=== PATIENT | male | born 1955 | race Caucasian/White ===

== ENCOUNTER 2020-09-26 04:33 | Inpatient (IN) ==
[2020-09-26] MEDS ORDERED: 0.9 % SODIUM CHLORIDE 1,000 ML IV ONE (04:41)
[2020-09-26] MEDS ORDERED: VANCOMYCIN 1,000 MG in 0.9 % SODIUM CHLORIDE 250 ML IV ONE (04:41)
[2020-09-26] MEDS ORDERED: PIPERACILLIN SODIUM/TAZOBACTAM 3.375 GM in DEXTROSE 5% IN WATER 50 ML IV SCH (04:45)
--- NOTE | 2020-09-26 04:57 | Emergency Department Note ---
HPI General Chief complaint: Weakness Stated complaint: weakness and fever Time Seen by Provider: 09/26/20 04:35 Mode of arrival: EMS Limitations: altered mental status History of Present Illness HPI Narrative: Narrative: The patient is a 65-year-old male presents by ambulance with altered mental status, weakness and fever. Looking through his past medical history he has a history of hepatic encephalopathy, recurrent urinary tract infections pneumonia and alcohol abuse. Related Data Previous Rx's Medication Instructions Recorded lactulose 20 gram/30 mL oral 30 ml PO TID #2700 ml 09/08/20 solution pantoprazole 20 mg tablet,delayed 40 mg PO QDAY #180 tab 09/09/20 release spironolactone 25 mg tablet See Rx Instructions .ROUTE 09/09/20 .COMPLEX #180 tab tamsulosin 0.4 mg capsule 0.4 mg PO BID #180 cap 09/09/20 Allergies Allergy/AdvReac Type Severity Reaction Status Date / Time No Known Drug Allergies Allergy Verified 09/26/20 04:42 Review of Systems ROS ROS Narrative: Narrative: Limitations: ROS unobtainable due to patients medical condition [facility] Narrative Patient History Narrative: Narrative: Medical/Surgical/Family History All Active Problems (Updated 09/26/20 @ 06:56 by Tj Rodarte DO) Fever (Acute) AMS (altered mental status) (Acute) Thrombocytopenia (Acute) Acute UTI (Acute) Encephalopathy, hepatic (Acute) Hypomagnesemia (Acute) Medicare annual wellness visit, initial (Acute) BPH (benign prostatic hyperplasia) (Chronic) Recurrent UTI (Chronic) Hyperammonemia (Chronic) Edema (Chronic) Tobacco abuse (Chronic) Abnormal liver function tests (Chronic) Encounter for Health Maintenance Examination in Adult (Chronic) Gall bladder polyp (Chronic) Stiff back (Chronic) Weakness of right lower extremity (Chronic) Pain, dental (Chronic) Stiffness of hip joint (Chronic) Thrombocytopenia (Chronic) Dysphagia (Chronic) Nocturnal leg movements (Chronic) Serrated adenoma of colon (Chronic) Restless legs (Chronic 01/13/14) Portal hypertension (Chronic) Lipoma of skin and subcutaneous tissue (Chronic) Hypertension, essential (Chronic 09/25/13) Hernia, ventral (Chronic) Esophageal varices with bleeding (Chronic) ED (erectile dysfunction) (Chronic 11/12/13) Coagulopathy (Chronic 11/12/13) Alcoholic cirrhosis of liver (Chronic) Anemia (Chronic 10/30/13) Alcohol abuse, continuous (Chronic) Acid reflux (Chronic) Medical History Abnormal liver function tests Acid reflux 2004 Alcohol abuse, continuous Alcoholic cirrhosis of liver Anemia (10/30/13) Anemia of chr disease, vs secondary to blood loss check iron stores, check vit levels Ascites (10/30/13) Cellulitis and abscess of neck 12/23/2014 - Dr. Demetrius Ribera Coagulopathy (11/12/13) Colon polyp (03/19/14) HP Constipation (01/13/14) Dysphagia ED (erectile dysfunction) (11/12/13) Edema (10/30/13) Edema Encounter for Health Maintenance Examination in Adult 02/26/17 Esophageal varices with bleeding Gall bladder polyp Gastritis 03-19-2014 Dr. Wu Hernia, ventral infraumbilical, Patient wants surgical treatment. Explained to the patient that he is not a candidate for surgery as he has cirrhosis, and any abdomninal surgery can be dangerous due high potential for heavy blood loss. [facility] discharge follow-up Hypertension, essential (09/25/13) Jaundice not of (09/25/13) Lipoma of skin and subcutaneous tissue 03-19-2014 Dr. Wu- submucosal Medicare annual wellness visit, initial Nocturnal leg movements Pain, dental Portal hypertension Radiculopathy Recurrent UTI Restless legs (01/13/14) Serrated adenoma of colon Skin sensation disturbance (01/13/14) Breast Stiff back Stiffness of hip joint Thrombocytopenia stable, etiology likely cirrhosis and splenomegaly, given stability for nearly a decade patient has chosen to monitor. Seen by Dr William Oncology. Tobacco abuse Weakness of right lower extremity Right leg weakness, loss of senstation after rest. Knee reflex absent on the right side, Left side ++ . Sensory system intact in both lower extremities.. plantar down going both sides. Surgical History H/O colonoscopy (03/19/14) (03/19/14-Dr. Wu) Submucosal lipoma, serrated adenoma, HP H/O esophagogastroduodenoscopy (03/19/14) 03/19/14-Gastritis, minimal varices, scarring consistent with previous banding-Dr Wu 10/30/2013- History of back surgery Family History Father Myocardial Infarction High cholesterol Social History Smoking Status: Current every day smoker Alcohol Intake Frequency: does not drink Substance Use: does not use Exam Narrative Narrative: Narrative: General Limitations: altered mental status General appearance: Present sleepy and other (appears ill ) Head Head: Present atraumatic and normocephalic Eye Eye: Present normal appearance, PERRL and EOMI ENT ENT: Present normal exam, normal oropharynx and mucous membranes dry Neck Neck: Present normal inspection, full ROM and trachea midline Chest Chest: Present normal inspection and symmetric chest wall rise Respiratory Respiratory: Present normal lung sounds bilaterally Cardiovascular Cardiovascular: Present regular rate and normal rhythm Adbominal Abdominal: Present soft, normal bowel sounds and organomegaly; Absent tenderness, guarding, rebound, ascites and pulsatile mass Extremities Extremities: Present pretibial edema and other (Erythema and warmth to the right ankle with streaking noted to the groin) Back Back: Present normal inspection and full ROM; Absent tenderness Neurological Neurological: Present alert, oriented X3, CN II-XII intact, normal gait, motor sensory deficit and reflexes normal Psychiatric Psychiatric: Present normal affect Skin Skin: Present warm (WNL), erythema and other (Erythema and warmth to the right ankle with streaking noted to the groin) Course Course Course Narrative: EK:50 rate 77, ME interval 231, QRS 106, QTc 431, sinus rhythm, prolonged ME interval, P waves are upright in leads I to III, inverted aVR, no ME depression or elevation in lead II or aVR respectively, normal axis, no STEMI, good R wave progression, no acute ST segment elevation or depression, no shortened ME interval, no biphasic T waves, nonspecific EKG. Vital Signs Vital signs: Vital Signs Temperature 103.1 F H 09/26/20 04:37 Pulse Rate 83 09/26/20 04:37 Respiratory Rate 20 09/26/20 04:37 Blood Pressure 134/64 09/26/20 04:37 Pulse Oximetry (%) 97 09/26/20 04:37 Temperature 99.8 F H 09/26/20 06:31 Pulse Rate 64 09/26/20 06:31 Respiratory Rate 19 09/26/20 06:31 Blood Pressure 106/57 09/26/20 06:31 Pulse Oximetry (%) 98 09/26/20 06:31 MDM MDM Narrative Medical decision making narrative: Narrative: ddx: Most likely a cellulitis given the fever and evidence of erythema and warmth and streaking of the right lower extremity. Covid, influenza, cystitis, SBP, sepsis with urinary tract infection, sepsis, hepatic encephalopathy 06:41 patient signed out at shift change to dr. solomon cole. Patient will require admission for IV abx for AMS, UTI, Cellulitis, treatment of his hepatic encephalopathy. Lab Data Result diagrams: 09/26/20 05:11 09/26/20 05:11 Labs: Lab Results 09/26/20 09/26/20 09/26/20 Range/Units 05:03 05:03 05:11 WBC 10.5 (4.5-11.0) K/mcL RBC 3.98 L (4.50-5.90) M/mcL Hgb 12.4 L (13.5-16.5) g/dL Hct 36.1 L (41.0-55.0) % MCV 90.7 (80.0-100.0) fL MCH 31.2 (26.0-34.0) pg MCHC 34.3 (31.0-36.0) g/dL RDW 16.9 H (11.5-14.5) % Plt Count 43 L* (140-440) K/mcL MPV 12.8 H (7.4-10.4) fL PT (11.9-14.5) sec INR (0.9-1.1) ABG Methemoglobin (0.4-1.5) % VBG pH (7.32-7.42) U VBG pCO2 (41.0-51.0) mmHg VBG pO2 (25.0-40.0) mmHg VBG HCO3 (24.0-28.0) mmol/L VBG Total CO2 (25.0-29.0) mmol/L VBG O2 Saturation (40.0-70.0) % VBG Base Excess (-2-3) VBG Lactic Acid (0.5-2.0) mmol/L Carboxyhemoglobin (0.0-1.5) % THgb Total Hemoglobin (13.5-16.5) gm/Dl Sodium (133-145) mmol/L Potassium (3.3-5.1) mmol/L Chloride (96-108) mmol/L Carbon Dioxide (22-30) mmol/L Anion Gap (8.0-16.0) BUN (8-23) mg/dL Creatinine (0.7-1.2) mg/dL GFR Calculation Glucose (70-105) mg/dL Calcium (8.6-10.4) mg/dL Phosphorus (2.5-4.5) mg/dL Magnesium (1.6-2.5) mg/dL Total Bilirubin (0.1-1.0) mg/dL Direct Bilirubin (<0.3) mg/dL AST (<40) U/L ALT (<40) U/L Alkaline Phosphatase (39-117) U/L Ammonia (16-60) umol/L Troponin T (<0.03) ng/mL NT-Pro-B Natriuret Pep (<125.0) pg/mL Total Protein (5.9-8.4) gm/dL Albumin (3.2-5.2) gm/dL Globulin (2.2-3.7) gm/dL Lipase (7-60) U/L Procalcitonin (<0.10) ng/mL Urine Color Yellow Urine Appearance Cloudy A (Clear) Urine pH 7.0 (5.0-9.0) Ur Specific [place] 1.010 (1.000-1.035) Urine Protein 30 A (Negative) mg/dL Urine Glucose (UA) Negative (Negative) mg/dL Urine Ketones Negative (Negative) mg/dL Urine Occult Blood >=1.0 A (Negative) mg/dL Urine Nitrate Negative (Negative) Urine Bilirubin Negative (Negative) mg/dL Urine Urobilinogen Negative mg/dL Ur Leukocyte Esterase 500 A (Negative) /ug Urine RBC 74 H (0-3) /hpf Urine WBC > 182 H (0-4) /hpf Ur Squamous Epith Cells 0 (0-4) /hpf Urine Bacteria Few A (0) /hpf Ur Culture Indicated? yes Salicylates mg/dL Urine Opiates Screen None detected Ur Opiates Confirm TNP Ur Oxycodone Screen None detected Urine Methadone Screen None detected Ur Methadone Confirm TNP Acetaminophen ug/mL Ur Barbiturates Screen None detected Ur Barbiturate Confirm TNP Ur Phencyclidine Scrn None detected Urine PCP Confirm TNP Ur Amphetamines Screen None detected U Amphetamines Confirm TNP U Benzodiazepines Scrn None detected U Benzodiazepine Confm TNP Urine Cocaine Screen None detected Urine Cocaine Confirm TNP U Cannabinoids Confirm TNP U Marijuana (THC) Screen None detected Ethyl Alcohol (<0.010) gm/dL 09/26/20 09/26/20 09/26/20 Range/Units 05:11 05:11 05:11 WBC (4.5-11.0) K/mcL RBC (4.50-5.90) M/mcL Hgb (13.5-16.5) g/dL Hct (41.0-55.0) % MCV (80.0-100.0) fL MCH (26.0-34.0) pg MCHC (31.0-36.0) g/dL RDW (11.5-14.5) % Plt Count (140-440) K/mcL MPV (7.4-10.4) fL PT 19.4 H (11.9-14.5) sec INR 1.6 H (0.9-1.1) ABG Methemoglobin (0.4-1.5) % VBG pH (7.32-7.42) U VBG pCO2 (41.0-51.0) mmHg VBG pO2 (25.0-40.0) mmHg VBG HCO3 (24.0-28.0) mmol/L VBG Total CO2 (25.0-29.0) mmol/L VBG O2 Saturation (40.0-70.0) % VBG Base Excess (-2-3) VBG Lactic Acid (0.5-2.0) mmol/L Carboxyhemoglobin (0.0-1.5) % THgb Total Hemoglobin (13.5-16.5) gm/Dl Sodium 129 L (133-145) mmol/L Potassium 3.5 (3.3-5.1) mmol/L Chloride 101 (96-108) mmol/L Carbon Dioxide 17 L (22-30) mmol/L Anion Gap 11.0 (8.0-16.0) BUN 11 (8-23) mg/dL Creatinine 0.9 (0.7-1.2) mg/dL GFR Calculation 89 Glucose 104 (70-105) mg/dL Calcium 7.9 L (8.6-10.4) mg/dL Phosphorus 1.7 L (2.5-4.5) mg/dL Magnesium 1.5 L (1.6-2.5) mg/dL Total Bilirubin 2.5 H (0.1-1.0) mg/dL Direct Bilirubin 0.7 H (<0.3) mg/dL AST 49 H (<40) U/L ALT 24 (<40) U/L Alkaline Phosphatase 166 H (39-117) U/L Ammonia (16-60) umol/L Troponin T < 0.01 (<0.03) ng/mL NT-Pro-B Natriuret Pep 364.6 H (<125.0) pg/mL Total Protein 6.4 (5.9-8.4) gm/dL Albumin 2.7 L (3.2-5.2) gm/dL Globulin 3.7 (2.2-3.7) gm/dL Lipase 44 (7-60) U/L Procalcitonin (<0.10) ng/mL Urine Color Urine Appearance (Clear) Urine pH (5.0-9.0) Ur Specific Ed[place] (1.000-1.035) Urine Protein (Negative) mg/dL Urine Glucose (UA) (Negative) mg/dL Urine Ketones (Negative) mg/dL Urine Occult Blood (Negative) mg/dL Urine Nitrate (Negative) Urine Bilirubin (Negative) mg/dL Urine Urobilinogen mg/dL Ur Leukocyte Esterase (Negative) /ug Urine RBC (0-3) /hpf Urine WBC (0-4) /hpf Ur Squamous Epith Cells (0-4) /hpf Urine Bacteria (0) /hpf Ur Culture Indicated? Salicylates mg/dL Urine Opiates Screen Ur Opiates Confirm Ur Oxycodone Screen Urine Methadone Screen Ur Methadone Confirm Acetaminophen ug/mL Ur Barbiturates Screen Ur Barbiturate Confirm Ur Phencyclidine Scrn Urine PCP Confirm Ur Amphetamines Screen U Amphetamines Confirm U Benzodiazepines Scrn U Benzodiazepine Confm Urine Cocaine Screen Urine Cocaine Confirm U Cannabinoids Confirm U Marijuana (THC) Screen Ethyl Alcohol (<0.010) gm/dL 09/26/20 09/26/20 09/26/20 Range/Units 05:11 05:11 05:11 WBC (4.5-11.0) K/mcL RBC (4.50-5.90) M/mcL Hgb (13.5-16.5) g/dL Hct (41.0-55.0) % MCV (80.0-100.0) fL MCH (26.0-34.0) pg MCHC (31.0-36.0) g/dL RDW (11.5-14.5) % Plt Count (140-440) K/mcL MPV (7.4-10.4) fL PT (11.9-14.5) sec INR (0.9-1.1) ABG Methemoglobin (0.4-1.5) % VBG pH (7.32-7.42) U VBG pCO2 (41.0-51.0) mmHg VBG pO2 (25.0-40.0) mmHg VBG HCO3 (24.0-28.0) mmol/L VBG Total CO2 (25.0-29.0) mmol/L VBG O2 Saturation (40.0-70.0) % VBG Base Excess (-2-3) VBG Lactic Acid 2.9 H (0.5-2.0) mmol/L Carboxyhemoglobin (0.0-1.5) % THgb Total Hemoglobin (13.5-16.5) gm/Dl Sodium (133-145) mmol/L Potassium (3.3-5.1) mmol/L Chloride (96-108) mmol/L Carbon Dioxide (22-30) mmol/L Anion Gap (8.0-16.0) BUN (8-23) mg/dL Creatinine (0.7-1.2) mg/dL GFR Calculation Glucose (70-105) mg/dL Calcium (8.6-10.4) mg/dL Phosphorus (2.5-4.5) mg/dL Magnesium (1.6-2.5) mg/dL Total Bilirubin (0.1-1.0) mg/dL Direct Bilirubin (<0.3) mg/dL AST (<40) U/L ALT (<40) U/L Alkaline Phosphatase (39-117) U/L Ammonia (16-60) umol/L Troponin T (<0.03) ng/mL NT-Pro-B Natriuret Pep (<125.0) pg/mL Total Protein (5.9-8.4) gm/dL Albumin (3.2-5.2) gm/dL Globulin (2.2-3.7) gm/dL Lipase (7-60) U/L Procalcitonin 0.14 H (<0.10) ng/mL Urine Color Urine Appearance (Clear) Urine pH (5.0-9.0) Ur Specific [place] (1.000-1.035) Urine Protein (Negative) mg/dL Urine Glucose (UA) (Negative) mg/dL Urine Ketones (Negative) mg/dL Urine Occult Blood (Negative) mg/dL Urine Nitrate (Negative) Urine Bilirubin (Negative) mg/dL Urine Urobilinogen mg/dL Ur Leukocyte Esterase (Negative) /ug Urine RBC (0-3) /hpf Urine WBC (0-4) /hpf Ur Squamous Epith Cells (0-4) /hpf Urine Bacteria (0) /hpf Ur Culture Indicated? Salicylates < 0.3 mg/dL Urine Opiates Screen Ur Opiates Confirm Ur Oxycodone Screen Urine Methadone Screen Ur Methadone Confirm Acetaminophen < 5.0 ug/mL Ur Barbiturates Screen Ur Barbiturate Confirm Ur Phencyclidine Scrn Urine PCP Confirm Ur Amphetamines Screen U Amphetamines Confirm U Benzodiazepines Scrn U Benzodiazepine Confm Urine Cocaine Screen Urine Cocaine Confirm U Cannabinoids Confirm U Marijuana (THC) Screen Ethyl Alcohol (<0.010) gm/dL 09/26/20 09/26/20 09/26/20 Range/Units 05:11 05:35 05:35 WBC (4.5-11.0) K/mcL RBC (4.50-5.90) M/mcL Hgb (13.5-16.5) g/dL Hct (41.0-55.0) % MCV (80.0-100.0) fL MCH (26.0-34.0) pg MCHC (31.0-36.0) g/dL RDW (11.5-14.5) % Plt Count (140-440) K/mcL MPV (7.4-10.4) fL PT (11.9-14.5) sec INR (0.9-1.1) ABG Methemoglobin 0 L (0.4-1.5) % VBG pH 7.45 H (7.32-7.42) U VBG pCO2 28.3 L (41.0-51.0) mmHg VBG pO2 68.9 H (25.0-40.0) mmHg VBG HCO3 19.3 L (24.0-28.0) mmol/L VBG Total CO2 20.1 L (25.0-29.0) mmol/L VBG O2 Saturation 89.0 H (40.0-70.0) % VBG Base Excess -4 L (-2-3) VBG Lactic Acid (0.5-2.0) mmol/L Carboxyhemoglobin 5.0 H (0.0-1.5) % THgb Total Hemoglobin 11.0 L (13.5-16.5) gm/Dl Sodium (133-145) mmol/L Potassium (3.3-5.1) mmol/L Chloride (96-108) mmol/L Carbon Dioxide (22-30) mmol/L Anion Gap (8.0-16.0) BUN (8-23) mg/dL Creatinine (0.7-1.2) mg/dL GFR Calculation Glucose (70-105) mg/dL Calcium (8.6-10.4) mg/dL Phosphorus (2.5-4.5) mg/dL Magnesium (1.6-2.5) mg/dL Total Bilirubin (0.1-1.0) mg/dL Direct Bilirubin (<0.3) mg/dL AST (<40) U/L ALT (<40) U/L Alkaline Phosphatase (39-117) U/L Ammonia 80 H (16-60) umol/L Troponin T (<0.03) ng/mL NT-Pro-B Natriuret Pep (<125.0) pg/mL Total Protein (5.9-8.4) gm/dL Albumin (3.2-5.2) gm/dL Globulin (2.2-3.7) gm/dL Lipase (7-60) U/L Procalcitonin (<0.10) ng/mL Urine Color Urine Appearance (Clear) Urine pH (5.0-9.0) Ur Specific [place] (1.000-1.035) Urine Protein (Negative) mg/dL Urine Glucose (UA) (Negative) mg/dL Urine Ketones (Negative) mg/dL Urine Occult Blood (Negative) mg/dL Urine Nitrate (Negative) Urine Bilirubin (Negative) mg/dL Urine Urobilinogen mg/dL Ur Leukocyte Esterase (Negative) /ug Urine RBC (0-3) /hpf Urine WBC (0-4) /hpf Ur Squamous Epith Cells (0-4) /hpf Urine Bacteria (0) /hpf Ur Culture Indicated? Salicylates mg/dL Urine Opiates Screen Ur Opiates Confirm Ur Oxycodone Screen Urine Methadone Screen Ur Methadone Confirm Acetaminophen ug/mL Ur Barbiturates Screen Ur Barbiturate Confirm Ur Phencyclidine Scrn Urine PCP Confirm Ur Amphetamines Screen U Amphetamines Confirm U Benzodiazepines Scrn U Benzodiazepine Confm Urine Cocaine Screen Urine Cocaine Confirm U Cannabinoids Confirm U Marijuana (THC) Screen Ethyl Alcohol < 0.010 (<0.010) gm/dL ED POC Tests ED POC Tests: RONNIE - SARS Antigen Negative Discharge Plan Patient/Caregiver Discharge Instructions Pt seen by BUILDING CARPENTER/PA only: No Clinical Impression: Thrombocytopenia, Acute UTI, Encephalopathy, hepatic, Hypomagnesemia Fever Qualifiers: Fever type: unspecified Qualified Code(s): R50.9 - Fever, unspecified AMS (altered mental status) Qualifiers: Altered mental status type: unspecified Qualified Code(s): R41.82 - Altered mental status, unspecified Patient Disposition: Still a Patient Condition: Serious Follow up with: Janelle Dorantes DO [Primary Care Provider] - Prescriptions: No Action lactulose 20 gram/30 mL solution 30 ml PO TID Qty: 2700 RF: 0 spironolactone 25 mg tablet See Rx Instructions .ROUTE .COMPLEX Qty: 180 RF: 1 tamsulosin [Flomax] 0.4 mg capsule 0.4 mg PO BID Qty: 180 RF: 1 pantoprazole [Protonix] 20 mg tablet,delayed release (DR/EC) 40 mg PO QDAY Qty: 180 RF: 0
[2020-09-26] MEDS ORDERED: IBUPROFEN TABLET (PP) 1 TABLET TABLET PO ONE (05:01)
[2020-09-26] MEDS ORDERED: POTASSIUM CHLORIDE 20 MEQ, MAGNESIUM SULFATE 16.24 MEQ, THIAMINE 100 MG, MVI, ADULT NO.... IV SCH (05:15)
--- NOTE | 2020-09-26 05:32 | Cat Scan Report ---
CLINICAL INFORMATION: Loss of consciousness weakness and fever COMPARISON: 05/12/2020 TECHNIQUE: 2.5 mm helical slices were obtained in the skull base to vertex. Following reconstruction, axial reformatted images were reviewed at bone and parenchymal windows. The exam was performed using radiation dose optimization techniques including, but not limited to, automated exposure control, adjustment of the mA and/or kV according to patient size and use of iterative reconstruction technique. FINDINGS: The ventricles, sulci, fissures, and cisterns are symmetrically enlarged compatible with mild atrophy - no change. No extra-axial fluid collections are identified. Mild patchy chronic ischemic changes in the deep cerebral white matter are unchanged. 1.50 low-attenuation focus subcortical white matter the right frontal lobe near vertex likely represents chronic ischemia. It was not seen on previous exam. There is no evidence of hemorrhage, mass effect, or edema. Bone windows show no osseous abnormality. IMPRESSION: Mild atrophy and chronic ischemic changes in the cerebral white matter slightly more than typically seen in this age group.. No change. Note: For persistent, recurrent or worrisome neurologic symptoms, would suggest brain MRI. Interpreted and Authenticated by: Robert Mckeon 09/26/20
--- NOTE | 2020-09-26 05:33 | XRay Report ---
CLINICAL INFORMATION: ankle swelling COMPARISON: None. FINDINGS: There is no fracture or other osseous normality. The joint spaces are normal in width and alignment without arthritic change. Moderate diffuse soft tissue swelling noted. IMPRESSION: Moderate diffuse soft tissue swelling typically indicating edema or cellulitis. Interpreted and Authenticated by: Robert Mckeon 09/26/20
--- NOTE | 2020-09-26 05:35 | XRay Report ---
CLINICAL INFORMATION: FEVER COMPARISON: 12/09/2017 FINDINGS: Heart size, mediastinum and pulmonary vessels are normal. Lung volumes are mildly elevated and there is minimal bronchial wall thickening suggesting chronic bronchitis or asthma. There are no infiltrates or effusions. IMPRESSION: Findings suggestive of chronic bronchitis or asthma. No acute disease Interpreted and Authenticated by: Robert Mckeon 09/26/20
[2020-09-26] MEDS ORDERED: IBUPROFEN 200 MG TABLET PO ONE (05:41)
[2020-09-26 05:59] LABS: ABG Methemoglobin 0 % (0.4-1.5); VBG Base Excess -4 (-2-3); VBG HCO3 19.3 mmol/L (24.0-28.0); VBG PCO2 28.3 mmHg (41.0-51.0); VBG PH 7.45 U (7.32-7.42); VBG PO2 68.9 mmHg (25.0-40.0); VBG Total CO2 20.1 mmol/L (25.0-29.0)
[2020-09-26 06:29] LABS: Acetaminophen < 5.0 ug/mL; Salicylate < 0.3 mg/dL
[2020-09-26 06:30] LABS: Alcohol, Blood < 10.0 mg/dL; Alcohol,Blood < 0.010 gm/dL (<0.010); proBNP 364.6 pg/mL (<125.0)
[2020-09-26 06:31] LABS: Appearance,Urine CLOUDY (Clear); Bacteria,Urine FEW /hpf (0); Bilirubin,Urine Negative (Negative); Color,Urine YELLOW; Culture Indicated,Urine yes; Glucose,Urine (UA) Negative (Negative); Ketones,Urine Negative (Negative); Leukocyte Esterase,Urine 500 /ug (Negative); Nitrate,Urine Negative (Negative); Protein,Urine 30 mg/dL (Negative); Urine Blood >=1.0 mg/dL (Negative); Urine RBC 74 /hpf (0-3); Urine Squamous Epithelial Cell 0 /hpf (0-4); Urine WBC > 182 /hpf (0-4); Urobilinogen,Urine Negative
[2020-09-26 06:31] LABS: ALT/SGPT 24 U/L (<40); AST/SGOT 49 U/L (<40); Albumin 2.7 gm/dL (3.2-5.2); Alkaline Phosphatase 166 U/L (39-117); Bilirubin,Direct 0.7 mg/dL (<0.3); Bilirubin,Total 2.5 mg/dL (0.1-1.0); Blood Urea Nitrogen 11 mg/dL (8-23); Calcium 7.9 mg/dL (8.6-10.4); Carbon Dioxide 17 mmol/L (22-30); Chloride 101 mmol/L (96-108); Globulin 3.7 gm/dL (2.2-3.7); Glomerular Filtration Rate 89; Glucose 104 mg/dL (70-105); INR 1.6 (0.9-1.1); Phosphorous 1.7 mg/dL (2.5-4.5); Prothrombin Time 19.4 sec (11.9-14.5)
[2020-09-26 06:33] LABS: Hematocrit 36.1 % (41.0-55.0); Hemoglobin 12.4 g/dL (13.5-16.5); Mean Cell Volume 90.7 fL (80.0-100.0); Mean Corpuscular HGB Conc 34.3 g/dL (31.0-36.0); Mean Platelet Volume 12.8 fL (7.4-10.4); Platelet Count 43 K/mcL (140-440); RBC 3.98 M/mcL (4.50-5.90); Red Cell Distribution Width 16.9 % (11.5-14.5); WBC 10.5 K/mcL (4.5-11.0)
[2020-09-26 06:38] LABS: Amphetamine Screen,Urine None detected; Barbiturate Screen,Urine None detected; Benzodiazepines Screen,Urine None detected; Cannabinoid Screen,Urine None detected; Cocaine Screen,Urine None detected; Opiate Screen,Urine None detected; Oxycodone, Urine Screen None detected; Phencyclidine Screen,Urine None detected
[2020-09-26 08:32] LABS: Anisocytosis 2+ (None Seen); Band Neutrophils % 1 % (0-10); Basophils % (Manual) 1 % (0-2); Eosinophils % (Manual) 3 % (0-7); Monocytes % (Manual) 6 % (1-12); Platelet Estimate MARKEDLY DECREASED (Normal); RBC Morphology ABNORMAL (Normal); Segmented Neutrophils % 89 % (38-78)
[2020-09-26 08:41] LABS: Erythrocyte Sedimentation Rate 20 mm/hr (0-15)
--- NOTE | 2020-09-26 10:24 | Internal Med History&Physical ---
HPI History of Present Illness Patient information: Note initiated : 09/26/20 at 10:11 am Service Date, if different from initiated Date: [] Patient: Nic Snyder a 65 y/o M admitted on 09/26/20 for weakness and fever. Chief Complaint: [] History of present illness: Mr. Snyder is a 65 year old M Patient with brought in by his for confusion and weakness. Patient admits to feeling a little bit off yesterday with some confusion, the way he feels when his ammonia gets elevated. He did not feel feverish. In the ED he had a fever. Urinalysis was concerning for UTI and has had UTIs in the past. In the ED there was concern for possible cellulitis of his right lower extremity. He denies any pains or complaints to the right lower extremity. Does have some chronic skin changes from old wounds and venous stasis. Ammonia was mildly elevated. Sodium little bit low. He states he takes his lactulose once a day and has 1 bowel movement a day. Electrolytes are also found to be low in the ED He has no abdominal pain, no chest pain. Mentation is better this morning. Review of Systems: Positives as above. Denies headache/chills/nausea/vomiting/chest or abdominal pain/cough/dyspnea/diarrhea. Many 10 point review of system reviewed negative PFSH PFSH All Active Problems (Updated 09/26/20 @ 06:56 by Tj Rodarte DO) Fever (Acute) AMS (altered mental status) (Acute) Thrombocytopenia (Acute) Acute UTI (Acute) Encephalopathy, hepatic (Acute) Hypomagnesemia (Acute) Medicare annual wellness visit, initial (Acute) BPH (benign prostatic hyperplasia) (Chronic) Recurrent UTI (Chronic) Hyperammonemia (Chronic) Edema (Chronic) Tobacco abuse (Chronic) Abnormal liver function tests (Chronic) Encounter for Health Maintenance Examination in Adult (Chronic) Gall bladder polyp (Chronic) Stiff back (Chronic) Weakness of right lower extremity (Chronic) Pain, dental (Chronic) Stiffness of hip joint (Chronic) Thrombocytopenia (Chronic) Dysphagia (Chronic) Nocturnal leg movements (Chronic) Serrated adenoma of colon (Chronic) Restless legs (Chronic 01/13/14) Portal hypertension (Chronic) Lipoma of skin and subcutaneous tissue (Chronic) Hypertension, essential (Chronic 09/25/13) Hernia, ventral (Chronic) Esophageal varices with bleeding (Chronic) ED (erectile dysfunction) (Chronic 11/12/13) Coagulopathy (Chronic 11/12/13) Alcoholic cirrhosis of liver (Chronic) Anemia (Chronic 10/30/13) Alcohol abuse, continuous (Chronic) Acid reflux (Chronic) Medical History Abnormal liver function tests Acid reflux 2004 Alcohol abuse, continuous Alcoholic cirrhosis of liver Anemia (10/30/13) Anemia of chr disease, vs secondary to blood loss check iron stores, check vit levels Ascites (10/30/13) Cellulitis and abscess of neck 12/23/2014 - Dr. Demetrius Ribera Coagulopathy (11/12/13) Colon polyp (03/19/14) HP Constipation (01/13/14) Dysphagia ED (erectile dysfunction) (11/12/13) Edema (10/30/13) Edema Encounter for Health Maintenance Examination in Adult 02/26/17 Esophageal varices with bleeding Gall bladder polyp Gastritis 03-19-2014 Dr. Wu Hernia, ventral infraumbilical, Patient wants surgical treatment. Explained to the patient that he is not a candidate for surgery as he has cirrhosis, and any abdomninal surgery can be dangerous due high potential for heavy blood loss. [facility] discharge follow-up Hypertension, essential (09/25/13) Jaundice not of (09/25/13) Lipoma of skin and subcutaneous tissue 03-19-2014 Dr. Wu- submucosal Medicare annual wellness visit, initial Nocturnal leg movements Pain, dental Portal hypertension Radiculopathy Recurrent UTI Restless legs (01/13/14) Serrated adenoma of colon Skin sensation disturbance (01/13/14) Breast Stiff back Stiffness of hip joint Thrombocytopenia stable, etiology likely cirrhosis and splenomegaly, given stability for nearly a decade patient has chosen to monitor. Seen by Dr [facility] On[facility]. Tobacco abuse Weakness of right lower extremity Right leg weakness, loss of senstation after rest. Knee reflex absent on the right side, Left side ++ . Sensory system intact in both lower extremities.. plantar down going both sides. Surgical History H/O colonoscopy (03/19/14) (03/19/14-Dr. Wu) Submucosal lipoma, serrated adenoma, HP H/O esophagogastroduodenoscopy (03/19/14) 03/19/14-Gastritis, minimal varices, scarring consistent with previous nahomy ng-Dr Wu 10/30/2013- History of back surgery Family History Father Myocardial Infarction High cholesterol Social History (Updated 09/26/20 @ 10:14 by Lenard Rodriges DO) marital status: single alcohol intake frequency: does not drink substance use type: does not use additional history: Past social history: Patient smokes 1 cigarette a day. He still has 1-2 beers per day and I counseled him on the importance of abstaining given his cirrhosis. MEDS/ALLERGIES Home Medications and Allergies Home Medications Medication Instructions Recorded Confirmed Type lactulose 20 gram/30 mL oral 30 ml PO TID #2700 ml 09/08/20 09/26/20 Rx solution pantoprazole 20 mg tablet,delayed 40 mg PO QDAY #180 tab 09/09/20 09/26/20 Rx release spironolactone 25 mg tablet See Rx Instructions .ROUTE 09/09/20 09/26/20 Rx .COMPLEX #180 tab zojtyna-hthfugeor-zxoc 1 tab PO QDAY 09/26/20 09/26/20 History tamsulosin [Flomax] 0.8 mg PO QHS 09/26/20 09/26/20 History Allergies Allergy/AdvReac Type Severity Reaction Status Date / Time No Known Drug Allergies Allergy Verified 09/26/20 04:42 EXAM Constitutional Vitals: Temp Pulse Resp BP Pulse Ox 98.8 F 59 L 13 113/49 96 09/26/20 09:15 09/26/20 09:01 09/26/20 09:15 09/26/20 09:15 09/26/20 09:15 Exam: General: Alert, Awake, No acute Distress Eyes/N/T: EOMI, PERRL, dry MM Head/Neck: neck supple, normocephalic atraumatic CV: RRR, No murmurs, normal s1/s2 Pulm: Clear b/l, no wheezing/rhonchi/rales Abd: soft, nontender, +BS x4 Ext: no clubbing/cyanosis, 2+ b/l LE chronic edema. RLE not tender, mild erythema and calf cir larger than left, no induration and does not appear as traci cellulitis Neuro: A&Ox4, no focal deficits, moves all extremities, CN 2-12 grossly intact, symmetrical strength b/l upper/lower, sensations intact b/l upper/lower Skin: warm/dry DATA Data Completed and Pending Labs: Labs from last 24 hours 09/26/20 09/26/20 09/26/20 05:35 05:35 05:11 WBC RBC Hgb Hct MCV MCH MCHC RDW Plt Count MPV Seg Neutrophils % Band Neutrophils % Monocytes % (Manual) Eosinophils % (Manual) Basophils % (Manual) Platelet Estimate RBC Morphology Anisocytosis ESR PT INR ABG Methemoglobin 0 L VBG pH 7.45 H VBG pCO2 28.3 L VBG pO2 68.9 H VBG HCO3 19.3 L VBG Total CO2 20.1 L VBG O2 Saturation 89.0 H VBG Base Excess -4 L VBG Lactic Acid Carboxyhemoglobin 5.0 H Total Hemoglobin 11.0 L Sodium Potassium Chloride Carbon Dioxide Anion Gap BUN Creatinine GFR Calculation Glucose Calcium Phosphorus Magnesium Total Bilirubin Direct Bilirubin AST ALT Alkaline Phosphatase Ammonia 80 H Troponin T NT-Pro-B Natriuret Pep Total Protein Albumin Globulin Lipase Procalcitonin Urine Color Urine Appearance Urine pH Ur Specific [place] Urine Protein Urine Glucose (UA) Urine Ketones Urine Occult Blood Urine Nitrate Urine Bilirubin Urine Urobilinogen Ur Leukocyte Esterase Urine RBC Urine WBC Ur Squamous Epith Cells Urine Bacteria Ur Culture Indicated? Salicylates Urine Opiates Screen Ur Opiates Confirm Ur Oxycodone Screen Urine Methadone Screen Ur Methadone Confirm Acetaminophen Ur Barbiturates Screen Ur Barbiturate Confirm Ur Phencyclidine Scrn Urine PCP Confirm Ur Amphetamines Screen U Amphetamines Confirm U Benzodiazepines Scrn U Benzodiazepine Confm Urine Cocaine Screen Urine Cocaine Confirm U Cannabinoids Confirm U Marijuana (THC) Screen Ethyl Alcohol < 0.010 09/26/20 09/26/20 09/26/20 05:11 05:11 05:11 WBC RBC Hgb Hct MCV MCH MCHC RDW Plt Count MPV Seg Neutrophils % Band Neutrophils % Monocytes % (Manual) Eosinophils % (Manual) Basophils % (Manual) Platelet Estimate RBC Morphology Anisocytosis ESR PT INR ABG Methemoglobin VBG pH VBG pCO2 VBG pO2 VBG HCO3 VBG Total CO2 VBG O2 Saturation VBG Base Excess VBG Lactic Acid 2.9 H Carboxyhemoglobin Total Hemoglobin Sodium Potassium Chloride Carbon Dioxide Anion Gap BUN Creatinine GFR Calculation Glucose Calcium Phosphorus Magnesium Total Bilirubin Direct Bilirubin AST ALT Alkaline Phosphatase Ammonia Troponin T NT-Pro-B Natriuret Pep Total Protein Albumin Globulin Lipase Procalcitonin 0.14 H Urine Color Urine Appearance Urine pH Ur Specific [place] Urine Protein Urine Glucose (UA) Urine Ketones Urine Occult Blood Urine Nitrate Urine Bilirubin Urine Urobilinogen Ur Leukocyte Esterase Urine RBC Urine WBC Ur Squamous Epith Cells Urine Bacteria Ur Culture Indicated? Salicylates < 0.3 Urine Opiates Screen Ur Opiates Confirm Ur Oxycodone Screen Urine Methadone Screen Ur Methadone Confirm Acetaminophen < 5.0 Ur Barbiturates Screen Ur Barbiturate Confirm Ur Phencyclidine Scrn Urine PCP Confirm Ur Amphetamines Screen U Amphetamines Confirm U Benzodiazepines Scrn U Benzodiazepine Confm Urine Cocaine Screen Urine Cocaine Confirm U Cannabinoids Confirm U Marijuana (THC) Screen Ethyl Alcohol 09/26/20 09/26/20 09/26/20 05:11 05:11 05:11 WBC RBC Hgb Hct MCV MCH MCHC RDW Plt Count MPV Seg Neutrophils % Band Neutrophils % Monocytes % (Manual) Eosinophils % (Manual) Basophils % (Manual) Platelet Estimate RBC Morphology Anisocytosis ESR PT 19.4 H INR 1.6 H ABG Methemoglobin VBG pH VBG pCO2 VBG pO2 VBG HCO3 VBG Total CO2 VBG O2 Saturation VBG Base Excess VBG Lactic Acid Carboxyhemoglobin Total Hemoglobin Sodium 129 L Potassium 3.5 Chloride 101 Carbon Dioxide 17 L Anion Gap 11.0 BUN 11 Creatinine 0.9 GFR Calculation 89 Glucose 104 Calcium 7.9 L Phosphorus 1.7 L Magnesium 1.5 L Total Bilirubin 2.5 H Direct Bilirubin 0.7 H AST 49 H ALT 24 Alkaline Phosphatase 166 H Ammonia Troponin T < 0.01 NT-Pro-B Natriuret Pep 364.6 H Total Protein 6.4 Albumin 2.7 L Globulin 3.7 Lipase 44 Procalcitonin Urine Color Urine Appearance Urine pH Ur Specific [place] Urine Protein Urine Glucose (UA) Urine Ketones Urine Occult Blood Urine Nitrate Urine Bilirubin Urine Urobilinogen Ur Leukocyte Esterase Urine RBC Urine WBC Ur Squamous Epith Cells Urine Bacteria Ur Culture Indicated? Salicylates Urine Opiates Screen Ur Opiates Confirm Ur Oxycodone Screen Urine Methadone Screen Ur Methadone Confirm Acetaminophen Ur Barbiturates Screen Ur Barbiturate Confirm Ur Phencyclidine Scrn Urine PCP Confirm Ur Amphetamines Screen U Amphetamines Confirm U Benzodiazepines Scrn U Benzodiazepine Confm Urine Cocaine Screen Urine Cocaine Confirm U Cannabinoids Confirm U Marijuana (THC) Screen Ethyl Alcohol 09/26/20 09/26/20 09/26/20 05:11 05:03 05:03 WBC 10.5 RBC 3.98 L Hgb 12.4 L Hct 36.1 L MCV 90.7 MCH 31.2 MCHC 34.3 RDW 16.9 H Plt Count 43 L* MPV 12.8 H Seg Neutrophils % 89 H Band Neutrophils % 1 Monocytes % (Manual) 6 Eosinophils % (Manual) 3 Basophils % (Manual) 1 Platelet Estimate Markedly decreased A RBC Morphology Abnormal A Anisocytosis 2+ A ESR 20 H PT INR ABG Methemoglobin VBG pH VBG pCO2 VBG pO2 VBG HCO3 VBG Total CO2 VBG O2 Saturation VBG Base Excess VBG Lactic Acid Carboxyhemoglobin Total Hemoglobin Sodium Potassium Chloride Carbon Dioxide Anion Gap BUN Creatinine GFR Calculation Glucose Calcium Phosphorus Magnesium Total Bilirubin Direct Bilirubin AST ALT Alkaline Phosphatase Ammonia Troponin T NT-Pro-B Natriuret Pep Total Protein Albumin Globulin Lipase Procalcitonin Urine Color Yellow Urine Appearance Cloudy A Urine pH 7.0 Ur Specific [place] 1.010 Urine Protein 30 A Urine Glucose (UA) Negative Urine Ketones Negative Urine Occult Blood >=1.0 A Urine Nitrate Negative Urine Bilirubin Negative Urine Urobilinogen Negative Ur Leukocyte Esterase 500 A Urine RBC 74 H Urine WBC > 182 H Ur Squamous Epith Cells 0 Urine Bacteria Few A Ur Culture Indicated? yes Salicylates Urine Opiates Screen None detected Ur Opiates Confirm TNP Ur Oxycodone Screen None detected Urine Methadone Screen None detected Ur Methadone Confirm TNP Acetaminophen Ur Barbiturates Screen None detected Ur Barbiturate Confirm TNP Ur Phencyclidine Scrn None detected Urine PCP Confirm TNP Ur Amphetamines Screen None detected U Amphetamines Confirm TNP U Benzodiazepines Scrn None detected U Benzodiazepine Confm TNP Urine Cocaine Screen None detected Urine Cocaine Confirm TNP U Cannabinoids Confirm TNP U Marijuana (THC) Screen None detected Ethyl Alcohol A/P Narrative A/P Narrative: A: *Acute mild hepatic encephalopathy: *Fever: 2/2 UTI and ?RLE cellulitis -no leukocytosis, check man diff *UTI: *cirrhosis with sequelae thrombocytopenia/coagulopathy/bilirub/hyponatremia/hypoalbumin -still drinking beer daily -INR 1.6 on admit, Plts 40's *Hyponatremia: *low phos/mag/ *Anemia, chronic *Tobacco abuse: *GERD: * P: -lactulose to obtain 2-3 soft BMs/day -zosyn pending UC/BC -IVF, hold aldactone for now -RLE venous doppler -electrolyte replacement -pt/ot -Abstain from alcohol and cigarettes -ppx: SCD once dvt r/o, no chemical given low PLT, home ppi DNR Time Spent With Patient Time: Total time spent is greater than 50% in coordination of care (as documented) at patient's floor/unit and/or counseling patient: QUALITY VTE Deep Vein Thrombosis/Pulmonary Embolism Present on Admission: No
[2020-09-26] MEDS ORDERED: POTASSIUM CHLORIDE 20 MEQ TABLET PO PRN ×2 (10:25)
[2020-09-26] MEDS ORDERED: POTASSIUM CHLORIDE 40 MEQ in DEXTROSE 5% IN WATER 500 ML IV PRN (10:25)
[2020-09-26] MEDS ORDERED: ONDANSETRON 4 MG/2 ML VIAL IV PRN (10:25)
[2020-09-26] MEDS ORDERED: MAGNESIUM SULFATE 2 GM/50 ML BAG IV PRN (10:25)
[2020-09-26] MEDS ORDERED: IPRATROPIUM/ALBUTEROL 3 ML AMPUL.NEB NEB PRN (10:25)
[2020-09-26] MEDS ORDERED: MAGNESIUM SULFATE 2 GM/50 ML BAG IV ONE (10:31)
[2020-09-26] MEDS: LACTULOSE 20 GM/30 ML ORAL.SOL PO SCH ×3 (10:47→20:20)
[2020-09-26] MEDS ORDERED: 0.9 % SODIUM CHLORIDE 500 ML IV ONE (11:10)
[2020-09-26] MEDS: NEUTRA PHOS 1 PACKET PO SCH ×2 (11:12→20:20)
[2020-09-26] MEDS: PHOSPHORUS 250 MG TABLET PO SCH ×3 (11:12→20:20)
[2020-09-26] MEDS: 0.9 % SODIUM CHLORIDE 10 ML SYRINGE IV SCH ×2 (12:16→20:20)
[2020-09-26] MEDS: PIPERACILLIN SODIUM/TAZOBACTAM 3.375 GM in DEXTROSE 5% IN WATER 50 ML IV SCH ×2 (12:24→17:32)
--- NOTE | 2020-09-26 13:56 | Ultrasound Report ---
CLINICAL INFORMATION: Right leg swelling COMPARISON: None. FINDINGS: The entire deep venous system including the common femoral, superficial femoral, popliteal and paired trifurcation calf veins are easily compressible and show normal venous blood flow on color and spectral Doppler. No evidence of thrombus IMPRESSION: Negative exam - no evidence of deep vein thrombosis. Interpreted and Authenticated by: Robert Mckeon 09/26/20
[2020-09-26] MEDS ORDERED: LACTULOSE 20 GM/30 ML ORAL.SOL PO ONE ×2 (16:22→18:40)
[2020-09-26] MEDS: DOCUSATE SODIUM 100 MG CAPSULE PO SCH (20:20)
[2020-09-26] MEDS ORDERED: TAMSULOSIN 0.4 MG CAPSULE PO SCH (21:00)
[2020-09-27] MEDS: PIPERACILLIN SODIUM/TAZOBACTAM 3.375 GM in DEXTROSE 5% IN WATER 50 ML IV SCH ×4 (00:07→18:15)
[2020-09-27] MEDS: 0.9 % SODIUM CHLORIDE 10 ML SYRINGE IV SCH ×3 (05:19→21:18)
[2020-09-27 06:34] LABS: ALT/SGPT 23 U/L (<40); AST/SGOT 49 U/L (<40); Albumin/Globulin Ratio 0.6 (1.0-2.3); Alkaline Phosphatase 131 U/L (39-117); Bilirubin,Direct 0.8 mg/dL (<0.3); Bilirubin,Total 1.6 mg/dL (0.1-1.0); Blood Urea Nitrogen 11 mg/dL (8-23); Calcium 7.1 mg/dL (8.6-10.4); Carbon Dioxide 19 mmol/L (22-30); Chloride 109 mmol/L (96-108); Globulin 3.4 gm/dL (2.2-3.7); Glomerular Filtration Rate 93; Glucose 89 mg/dL (70-105); Lactate Dehydrogenase 259 U/L (135-225); Phosphorous 2.2 mg/dL (2.5-4.5); Triglycerides 44 mg/dL (<150); Uric Acid 2.6 mg/dL (2.5-8.0)
[2020-09-27 06:35] LABS: Hematocrit 33.6 % (41.0-55.0); Hemoglobin 11.2 g/dL (13.5-16.5); Mean Cell Volume 93.9 fL (80.0-100.0); Mean Corpuscular HGB Conc 33.3 g/dL (31.0-36.0); Mean Platelet Volume 12.9 fL (7.4-10.4); Platelet Count 39 K/mcL (140-440); RBC 3.58 M/mcL (4.50-5.90); Red Cell Distribution Width 17.3 % (11.5-14.5)
[2020-09-27 07:05] LABS: Anisocytosis 2+ (None Seen); Band Neutrophils % 4 % (0-10); Eosinophils % (Manual) 3 % (0-7); Lymphocytes % 8 % (15-49); Monocytes % (Manual) 8 % (1-12); Platelet Estimate MARKEDLY DECREASED (Normal); RBC Morphology ABNORMAL (Normal); Segmented Neutrophils % 77 % (38-78)
[2020-09-27] MEDS ORDERED: PANTOPRAZOLE 40 MG TABLET PO SCH (07:30)
--- NOTE | 2020-09-27 07:54 | Internal Med Progress Note ---
SUBJECTIVE Subjective Patient information: Note initiated : 09/27/20 at 7:49 am Service Date, if different from initiated Date: [] Patient: Nic Snyder 65 y/o M admitted on 09/26/20 for weakness and fever. Chief Complaint: [] Interval history: History of present illness: Mr. Snyder is a 65 year old M Patient with brought in by his for confusion and weakness. Patient admits to feeling a little bit off yesterday with some confusion, the way he feels when his ammonia gets elevated. He did not feel feverish. In the ED he had a fever. Urinalysis was concerning for UTI and has had UTIs in the past. In the ED there was concern for possible cellulitis of his right lower extremity. He denies any pains or complaints to the right lower extremity. Does have some chronic skin changes from old wounds and venous stasis. Ammonia was mildly elevated. Sodium little bit low. He states he takes his lactulose once a day and has 1 bowel movement a day. Electrolytes are also found to be low in the ED He has no abdominal pain, no chest pain. Mentation is better this morning. 09/27 Patient continues to feel better. Afebrile overnight. Awaiting urine culture. Review of Systems: denies headache/fever/chills/nausea/vomiting/chest or abdominal pain/cough/dyspnea/diarrhea. Otherwise see above. Constitutional Vitals: Vital Signs Temp Pulse Resp BP Pulse Ox 99.9 F H 62 16 143/57 97 09/27/20 06:03 09/27/20 06:03 09/27/20 06:03 09/27/20 06:03 09/27/20 06:03 Period Temp Pulse Resp BP Sys/Irene Pulse Ox Last 24 Hr 97.8 F-100.0 F 54-67 12-25 98-152/39-68 93-100 Intake and Output 09/26/20 09/27/20 09/27/20 21:59 05:59 13:59 Intake Total 1790 540 Output Total 1090 545 Balance 700 -5 Weight 86.806 kg Intake & Output: Intake & Output 09/26/20 09/27/20 09/27/20 21:59 05:59 13:59 Intake Total 1790 540 Output Total 1090 545 Balance 700 -5 Weight 86.806 kg Intake: IV 550 100 Sodium Chloride 0.9% 500 ml @ 500 75 mls/hr IV ONCE ONE Rx#: [id number] Zosyn 3.375 gm In Dextrose 5% 50 100 in Water 50 ml @ 100 mls/hr IV Q6H [facility] Rx#:[id number] Oral 1240 440 Output: Urine Catheter Amount 640 420 Stool 450 125 Other: Meal Dinner Percent of Meal Consumed 100% Feeding Ability Assist with Tray Set Up Urine Appearance Sediment Sediment Uretheral (Armas) Sediment Urine Color Blood Tinged Light [place] Uretheral (Armas) [place] Urine Odor Strong Stool Size Large Moderate Stool Color Brown Brown Stool Consistency Liquid Liquid Watery Loose # Bowel Movements 1 1 Exam: General: Alert, Awake, No acute Distress Eyes/N/T: EOMI, Head/Neck: neck supple, CV: RRR, No murmurs, Pulm: Clear b/l, no wheezing/rhonchi/rales Abd: soft, nontender, +BS x4 Ext: no clubbing/cyanosis, b/l LE edema R>L. Neuro: A&Ox4, no focal deficits, moves all extremities, Skin: warm/dry OBJ DATA Labs CBC & Chem 7: 09/27/20 05:20 09/27/20 05:20 Labs: Abnormal Lab Results 09/27/20 09/27/20 09/26/20 05:20 05:20 05:35 RBC 3.58 L Hgb 11.2 L Hct 33.6 L RDW 17.3 H Plt Count 39 L* MPV 12.9 H Seg Neutrophils % Lymphocytes % 8 L Platelet Estimate Markedly decreased A RBC Morphology Abnormal A Anisocytosis 2+ A ESR PT INR ABG Methemoglobin 0 L VBG pH 7.45 H VBG pCO2 28.3 L VBG pO2 68.9 H VBG HCO3 19.3 L VBG Total CO2 20.1 L VBG O2 Saturation 89.0 H VBG Base Excess -4 L VBG Lactic Acid Carboxyhemoglobin 5.0 H Total Hemoglobin 11.0 L Sodium Chloride 109 H Carbon Dioxide 19 L Anion Gap 7.0 L Calcium 7.1 L Phosphorus 2.2 L Magnesium Total Bilirubin 1.6 H Direct Bilirubin 0.8 H AST 49 H Alkaline Phosphatase 131 H Ammonia Lactate Dehydrogenase 259 H NT-Pro-B Natriuret Pep Total Protein 5.4 L Albumin 2.0 L Albumin/Globulin Ratio 0.6 L Procalcitonin Urine Appearance Urine Protein Urine Occult Blood Ur Leukocyte Esterase Urine RBC Urine WBC Urine Bacteria 09/26/20 09/26/20 09/26/20 05:35 05:11 05:11 RBC Hgb Hct RDW Plt Count MPV Seg Neutrophils % Lymphocytes % Platelet Estimate RBC Morphology Anisocytosis ESR PT INR ABG Methemoglobin VBG pH VBG pCO2 VBG pO2 VBG HCO3 VBG Total CO2 VBG O2 Saturation VBG Base Excess VBG Lactic Acid 2.9 H Carboxyhemoglobin Total Hemoglobin Sodium Chloride Carbon Dioxide Anion Gap Calcium Phosphorus Magnesium Total Bilirubin Direct Bilirubin AST Alkaline Phosphatase Ammonia 80 H Lactate Dehydrogenase NT-Pro-B Natriuret Pep Total Protein Albumin Albumin/Globulin Ratio Procalcitonin 0.14 H Urine Appearance Urine Protein Urine Occult Blood Ur Leukocyte Esterase Urine RBC Urine WBC Urine Bacteria 09/26/20 09/26/20 09/26/20 05:11 05:11 05:11 RBC 3.98 L Hgb 12.4 L Hct 36.1 L RDW 16.9 H Plt Count 43 L* MPV 12.8 H Seg Neutrophils % 89 H Lymphocytes % Platelet Estimate Markedly decreased A RBC Morphology Abnormal A Anisocytosis 2+ A ESR 20 H PT 19.4 H INR 1.6 H ABG Methemoglobin VBG pH VBG pCO2 VBG pO2 VBG HCO3 VBG Total CO2 VBG O2 Saturation VBG Base Excess VBG Lactic Acid Carboxyhemoglobin Total Hemoglobin Sodium 129 L Chloride Carbon Dioxide 17 L Anion Gap Calcium 7.9 L Phosphorus 1.7 L Magnesium 1.5 L Total Bilirubin 2.5 H Direct Bilirubin 0.7 H AST 49 H Alkaline Phosphatase 166 H Ammonia Lactate Dehydrogenase NT-Pro-B Natriuret Pep 364.6 H Total Protein Albumin 2.7 L Albumin/Globulin Ratio Procalcitonin Urine Appearance Urine Protein Urine Occult Blood Ur Leukocyte Esterase Urine RBC Urine WBC Urine Bacteria 09/26/20 05:03 RBC Hgb Hct RDW Plt Count MPV Seg Neutrophils % Lymphocytes % Platelet Estimate RBC Morphology Anisocytosis ESR PT INR ABG Methemoglobin VBG pH VBG pCO2 VBG pO2 VBG HCO3 VBG Total CO2 VBG O2 Saturation VBG Base Excess VBG Lactic Acid Carboxyhemoglobin Total Hemoglobin Sodium Chloride Carbon Dioxide Anion Gap Calcium Phosphorus Magnesium Total Bilirubin Direct Bilirubin AST Alkaline Phosphatase Ammonia Lactate Dehydrogenase NT-Pro-B Natriuret Pep Total Protein Albumin Albumin/Globulin Ratio Procalcitonin Urine Appearance Cloudy A Urine Protein 30 A Urine Occult Blood >=1.0 A Ur Leukocyte Esterase 500 A Urine RBC 74 H Urine WBC > 182 H Urine Bacteria Few A Meds: Medications Albuterol/Ipratropium (Ipratropium/Albuterol 3 Ml Ampul.Neb) 3 ml NEB Q4HP PRN PRN Reason: Shortness Of Breath Docusate Sodium (Docusate Sodium 100 Mg Capsule) 100 mg PO BID [facility] Last Admin: 09/26/20 20:20 Dose: 100 mg Documented by: Potassium Chloride 40 meq/ (Dextrose) 520 mls @ 130 mls/hr IV UD PRN PRN Reason: Potassium < 3 Magnesium Sulfate (Magnesium Sulfate) 2 gm in 50 mls @ 50 mls/hr IV UD PRN PRN Reason: Magnesium </= 1.6 Piperacillin Sod/Tazobactam (Sod 3.375 gm/ Dextrose) 50 mls @ 100 mls/hr IV Q6H [facility]; Protocol Last Infusion: 09/27/20 05:48 Dose: Infused Documented by: Lactulose (Lactulose 20 Gm/30 Ml Oral.Barbi) 20 gm PO TID [facility] Last Admin: 09/26/20 20:20 Dose: Not Given Documented by: Ondansetron HCl (Ondansetron 4 Mg/2 Ml Vial) 4 mg IV Q4HP PRN PRN Reason: Nausea And Vomiting Pantoprazole Sodium (Pantoprazole 40 Mg Tablet) 40 mg PO QAMAC [facility] Last Admin: 09/27/20 07:00 Dose: 40 mg Documented by: Potassium Chloride (Potassium Chloride 20 Meq Tablet) 40 meq PO UD PRN PRN Reason: Potssium is 3-3.5 Last Admin: 09/26/20 11:12 Dose: 40 meq Documented by: Potassium Chloride (Potassium Chloride 20 Meq Tablet) 40 meq PO UD PRN PRN Reason: Potassium < 3 Sodium Chloride (0.9 % Sodium Chloride 10 Ml Syringe) 10 ml IV Q8 [facility] Last Admin: 09/27/20 05:19 Dose: 10 ml Documented by: Tamsulosin HCl (Tamsulosin 0.4 Mg Capsule) 0.8 mg PO QHS [facility] Last Admin: 09/26/20 20:20 Dose: 0.8 mg Documented by: ABG Interpretation ABG results: 09/26/20 05:35 ABG Methemoglobin 0 L VBG pH 7.45 H VBG pCO2 28.3 L VBG pO2 68.9 H VBG HCO3 19.3 L VBG Total CO2 20.1 L VBG O2 Saturation 89.0 H VBG Base Excess -4 L A/P Narrative A/P Narrative: A: *Acute mild hepatic encephalopathy: resolved *UTI: *initial ? of RLE cellulitis: -no DVT -no leukocytosis, no bandemia, but Febrile on admit. no induration *cirrhosis with sequelae thrombocytopenia/coagulopathy/bilirub/hyponatremia/hypoalbumin -still drinking beer daily -INR 1.6 on admit, Plts 40's *Hyponatremia: resolved *low phos/mag/ *Anemia, chronic *Tobacco abuse: *GERD: * P: -lactulose to obtain 2-3 soft BMs/day -zosyn pending UC/BC -s/p IVF, hold aldactone for now -electrolyte replacement -pt/ot -Abstain from alcohol and cigarettes -ppx: SCD( no chemical given low PLT), home ppi DNR Time Spent With Patient Time: Total time spent is greater than 50% in coordination of care (as documented) at patient's floor/unit and/or counseling patient: QUALITY VTE Deep Vein Thrombosis/Pulmonary Embolism Present on Admission: No
--- NOTE | 2020-09-27 08:38 | Cat Scan Report ---
History: Fever, weakness, cellulitis versus edema in the right lower leg TECHNIQUE: The right lower leg was imaged from above the knee through the foot and axial plane at 2.5 mm intervals. Sagittal and coronal reformats were created. The radiation exposure was limited using dose reduction technology. FINDINGS: There is skin thickening and subcutaneous edema from the upper calf to the foot. The greatest swelling is around the foot and ankle. There is no evidence of an abscess. The muscles appear normal without evidence of inflammation or atrophy. There are couple small calcified phleboliths within a varicose vein located along the medial side of the mid calf. Patency of the deep veins cannot be determined on this exam. Tibia and fibula are normal without evidence of osteomyelitis, fracture or destructive bone lesion. Mild osteoarthritis is present in the lateral patellofemoral joint and in the first metatarsal phalangeal joint. There is a small joint effusion along the posterior medial aspect of the knee. IMPRESSION: Generalized soft tissue swelling in the calf foot and ankle. CT cannot distinguish between cellulitis and edema. Small joint effusion in the knee Interpreted and Authenticated by: Gino Noble 09/27/20
[2020-09-27] MEDS: LACTULOSE 20 GM/30 ML ORAL.SOL PO SCH ×3 (09:20→21:18)
[2020-09-27] MEDS: DOCUSATE SODIUM 100 MG CAPSULE PO SCH ×3 (09:20→21:17)
--- NOTE | 2020-09-27 10:27 | Discharge Summary ---
Discharge Provider Provider Patient information: Note initiated : 09/27/20 at 10:25 am Service Date, if different from initiated Date: [] Patient: Nic Snyder 65 y/o M admitted on 09/26/20 for weakness and fever. Chief Complaint: [] Date of admission: 09/26/20 08:27 Discharge date: 09/28/20 Primary care physician: Janelle Dorantes DO Consults: 09/26/20 Consult to Physician [CONS] Stat Comment: Consulting Provider: Lenard Rodriges Reason For Exam: Physician to Consult Discharge Meds Discharge Medications Home Medications lactulose 20 gram/30 mL oral solution 30 ml PO TID #2700 ml 09/08/20 [Rx Confirmed 09/26/20 Last Taken 09/25/20] pantoprazole 20 mg tablet,delayed release 40 mg PO QDAY #180 tab 09/09/20 [Rx Confirmed 09/26/20 Last Taken 09/24/20] spironolactone 25 mg tablet See Rx Instructions .ROUTE .COMPLEX #180 tab 09/09/20 [Rx Confirmed 09/26/20 Last Taken 09/24/20] vdmsbof-pevxeewzl-[id number] 1 tab PO QDAY 09/26/20 [History Confirmed 09/26/20 Last Taken 09/24/20] tamsulosin [Flomax] 0.8 mg PO QHS 09/26/20 [History Confirmed 09/26/20 Last Taken 09/24/20] amoxicillin 875 mg PO BID #10 tab 09/28/20 [Rx Last Taken Unknown] levofloxacin 750 mg PO Q24H #5 tab 09/28/20 [Rx Last Taken Unknown] COURSE Hospital Course Hospital course: Interval history: History of present illness: Mr. Snyder is a 65 year old M Patient with brought in by his for confusion and weakness. Patient admits to feeling a little bit off yesterday with some confusion, the way he feels when his ammonia gets elevated. He did not feel feverish. In the ED he had a fever. Urinalysis was concerning for UTI and has had UTIs in the past. In the ED there was concern for possible cellulitis of his right lower extremity. He denies any pains or complaints to the right lower extremity. Does have some chronic skin changes from old wounds and venous stasis. Ammonia was mildly elevated. Sodium little bit low. He states he takes his lactulose once a day and has 1 bowel movement a day. Electrolytes are also found to be low in the ED He has no abdominal pain, no chest pain. Mentation is better this morning. 09/27 Patient continues to feel better. Afebrile overnight. Awaiting urine culture. 09/28 Feeling well. No overnight event or new complaints. Cultures with Klebsiella pneumonia A: *Acute mild hepatic encephalopathy: resolved *UTI (Enterococcus and coag negative staph): *initial ? of RLE cellulitis: -no DVT -no leukocytosis, no bandemia, but Febrile on admit. no induration *cirrhosis with sequelae thrombocytope rafal/coagulopathy/bilirub/hyponatremia/hypoalbumin -still drinking beer daily -INR 1.6 on admit, Plts 40's *Hyponatremia: resolved *low phos/mag/ *Anemia, chronic *Tobacco abuse: *GERD: Discharge diagnosis: Hepatic encephalopathy UTI hyponatremia electrolyte abnormality Secondary discharge diagnosis: Chronic anemia tobacco abuse GERD cirrhosis Time Spent with Patient Time attestation: Total time spent providing and/or coordinating discharge services: Time spent: Greater than 30 minutes EXAM Constitutional Vitals: Temp Pulse Resp BP Pulse Ox 99.3 F H 72 16 148/68 97 09/27/20 08:00 09/27/20 08:00 09/27/20 08:00 09/27/20 08:00 09/27/20 08:00 Discharge Data Data Completed and Pending Labs on day of discharge: Labs from last 24 hours 09/27/20 09/27/20 09/27/20 05:20 05:20 05:20 WBC 5.0 RBC 3.58 L Hgb 11.2 L Hct 33.6 L MCV 93.9 MCH 31.3 MCHC 33.3 RDW 17.3 H Plt Count 39 L* MPV 12.9 H Seg Neutrophils % 77 Band Neutrophils % 4 Lymphocytes % 8 L Monocytes % (Manual) 8 Eosinophils % (Manual) 3 Basophils % (Manual) Metamyelocytes % Myelocytes % Promyelocytes % Nucleated RBCs WBC Morphology Vacuolated Neuts Plasmacytoid Lymphs Reactive Lymphocytes Blast Cells Plasma Cells Other Cell Type Toxic Granulation Dohle Bodies Platelet Estimate Markedly decreased A RBC Morphology Abnormal A Polychromasia Hypochromasia Poikilocytosis Basophilic Stippling Anisocytosis 2+ A Microcytosis Macrocytosis Spherocytes Pappenheimer Bodies Target Cells Tear Drop Cells Ovalocytes Stomatocytes Helmet Cells Arredondo-[place] Bodies [place] Cells Acanthocytes (Spur) RBC Fragments Sodium 135 Potassium 3.9 Chloride 109 H Carbon Dioxide 19 L Anion Gap 7.0 L BUN 11 Creatinine 0.8 GFR Calculation 93 Glucose 89 Uric Acid 2.6 Calcium 7.1 L Phosphorus 2.2 L Magnesium 1.8 Total Bilirubin 1.6 H Direct Bilirubin 0.8 H GGT 47 AST 49 H ALT 23 Alkaline Phosphatase 131 H Ammonia 51 Lactate Dehydrogenase 259 H Total Protein 5.4 L Albumin 2.0 L Globulin 3.4 Albumin/Globulin Ratio 0.6 L Triglycerides 44 09/26/20 05:11 WBC RBC Hgb Hct MCV MCH MCHC RDW Plt Count MPV Seg Neutrophils % TNP Band Neutrophils % TNP Lymphocytes % TNP Monocytes % (Manual) TNP Eosinophils % (Manual) TNP Basophils % (Manual) TNP Metamyelocytes % TNP Myelocytes % TNP Promyelocytes % TNP Nucleated RBCs TNP WBC Morphology TNP Vacuolated Neuts TNP Plasmacytoid Lymphs TNP Reactive Lymphocytes TNP Blast Cells TNP Plasma Cells TNP Other Cell Type TNP Toxic Granulation TNP Dohle Bodies TNP Platelet Estimate TNP RBC Morphology TNP Polychromasia TNP Hypochromasia TNP Poikilocytosis TNP Basophilic Stippling TNP Anisocytosis TNP Microcytosis TNP Macrocytosis TNP Spherocytes TNP Pappenheimer Bodies TNP Target Cells TNP Tear Drop Cells TNP Ovalocytes TNP Stomatocytes TNP Helmet Cells TNP Arredondo-[place] Bodies TNP [place] Cells TNP Acanthocytes (Spur) TNP RBC Fragments TNP Sodium Potassium Chloride Carbon Dioxide Anion Gap BUN Creatinine GFR Calculation Glucose Uric Acid Calcium Phosphorus Magnesium Total Bilirubin Direct Bilirubin GGT AST ALT Alkaline Phosphatase Ammonia Lactate Dehydrogenase Total Protein Albumin Globulin Albumin/Globulin Ratio Triglycerides Preliminary micro results at discharge 09/26/20 05:44 Blood Culture - Preliminary Blood 09/26/20 05:35 Blood Culture - Preliminary Blood Discharge Plan Patient/Caregiver Discharge Instructions Activity: increase activity as tolerated Diet: Regular Diet Prescriptions: New levofloxacin 750 mg tablet 750 mg PO Q24H Qty: 5 RF: 0 amoxicillin 875 mg tablet 875 mg PO BID Qty: 10 RF: 0 Continued lactulose 20 gram/30 mL solution 30 ml PO TID Qty: 2700 RF: 0 spironolactone 25 mg tablet See Rx Instructions .ROUTE .COMPLEX Qty: 180 RF: 1 pantoprazole [Protonix] 20 mg tablet,delayed release (DR/EC) 40 mg PO QDAY Qty: 180 RF: 0 [id number]-[id number] Tablet 1 tab PO QDAY RF: 0 tamsulosin [Flomax] 0.4 mg capsule 0.8 mg PO QHS RF: 0 Follow Up Plan Follow up with: Janelle Dorantes DO [Primary Care Provider] - Patient Disposition: Home, Self-Care Prognosis: Undetermined Overall status at discharge: patient is progressing back to baseline Discharge Orders: Discharge Order (Routine); Ordered 09/28/20 Ordered By: Lenard Rodriges [facility] VTE Deep Vein Thrombosis/Pulmonary Embolism Present on Admission: No
--- NOTE | 2020-09-27 13:54 | EKG ---
[facility] Test Date: 2020-09-26 Pat Name: Nic Snyder Department: ED Room: Gender: Male Director Of Primary Care: leonor : 1955 Requested By: Tj Rodarte Order Number: [id number] Reading MD: Brandan Villarreal M.D. Measurements Intervals [place] Rate: 57 P: 24 NH: 236 QRS: 17 QRSD: 106 T: 37 QT: 484 QTc: 472 Interpretive Statements SINUS RHYTHM FIRST DEGREE AV BLOCK NO PRIOR TRACING FOR COMPARISON Electronically Signed On 09-27-2020 13:54:00 PDT by Brandan Villarreal M.D. /store/[email or web address]/[id number]
[2020-09-27] MEDS ORDERED: POTASSIUM CHLORIDE 20 MEQ TABLET PO PRN ×2 (14:15)
[2020-09-27] MEDS ORDERED: POTASSIUM CHLORIDE 40 MEQ in DEXTROSE 5% IN WATER 500 ML IV PRN (14:15)
[2020-09-27] MEDS ORDERED: MAGNESIUM SULFATE 2 GM/50 ML BAG IV PRN (14:15)
[2020-09-27] MEDS ORDERED: ONDANSETRON 4 MG/2 ML VIAL IV PRN (14:15)
[2020-09-27] MEDS ORDERED: IPRATROPIUM/ALBUTEROL 3 ML AMPUL.NEB NEB PRN (14:15)
[2020-09-27] MEDS ORDERED: LACTULOSE 20 GM/30 ML ORAL.SOL PO PRN (16:37)
[2020-09-27] MEDS ORDERED: TAMSULOSIN 0.4 MG CAPSULE PO SCH (21:00)
[2020-09-28] MEDS: PIPERACILLIN SODIUM/TAZOBACTAM 3.375 GM in DEXTROSE 5% IN WATER 50 ML IV SCH ×3 (00:07→13:28)
[2020-09-28] MEDS: 0.9 % SODIUM CHLORIDE 10 ML SYRINGE IV SCH (05:43)
[2020-09-28] MEDS ORDERED: PANTOPRAZOLE 40 MG TABLET PO SCH (07:30)
[2020-09-28] MEDS: LACTULOSE 20 GM/30 ML ORAL.SOL PO SCH (08:36)
[2020-09-28] MEDS: DOCUSATE SODIUM 100 MG CAPSULE PO SCH (08:36)
[2020-09-28] MEDS ORDERED: LACTOBACILLUS 1 CAPSULE PO SCH (09:00)
--- NOTE | 2020-09-30 07:28 | Emergency Department Note ---
Course Vital Signs Vital signs: Vital Signs Temperature 103.1 F H 09/26/20 04:37 Pulse Rate 83 09/26/20 04:37 Respiratory Rate 20 09/26/20 04:37 Blood Pressure 134/64 09/26/20 04:37 Pulse Oximetry (%) 97 09/26/20 04:37 Temperature 97.9 F 09/28/20 11:52 Pulse Rate 71 09/28/20 11:52 Respiratory Rate 18 09/28/20 11:52 Blood Pressure 139/67 09/28/20 11:52 Pulse Oximetry (%) 98 09/28/20 11:52 MDM MDM Narrative Medical decision making narrative: Narrative:Assumed care from the initial treating provider at 0700. Patient pending admission to the hospitalist. Lab Data Result diagrams: 09/27/20 05:20 09/27/20 05:20 Labs: Lab Results 09/26/20 09/26/20 09/26/20 Range/Units 05:03 05:03 05:11 WBC 10.5 (4.5-11.0) K/mcL RBC 3.98 L (4.50-5.90) M/mcL Hgb 12.4 L (13.5-16.5) g/dL Hct 36.1 L (41.0-55.0) % MCV 90.7 (80.0-100.0) fL MCH 31.2 (26.0-34.0) pg MCHC 34.3 (31.0-36.0) g/dL RDW 16.9 H (11.5-14.5) % Plt Count 43 L* (140-440) K/mcL MPV 12.8 H (7.4-10.4) fL Seg Neutrophils % 89 H (38-78) % Band Neutrophils % 1 (0-10) % Lymphocytes % Monocytes % (Manual) 6 (1-12) % Eosinophils % (Manual) 3 (0-7) % Basophils % (Manual) 1 (0-2) % Metamyelocytes % Myelocytes % Promyelocytes % Nucleated RBCs WBC Morphology Vacuolated Neuts Plasmacytoid Lymphs Reactive Lymphocytes Blast Cells Plasma Cells Other Cell Type Toxic Granulation Dohle Bodies Platelet Estimate Markedly decreased A (Normal) RBC Morphology Abnormal A (Normal) Polychromasia Hypochromasia Poikilocytosis Basophilic Stippling Anisocytosis 2+ A (None Seen) Microcytosis Macrocytosis Spherocytes Pappenheimer Bodies Target Cells Tear Drop Cells Ovalocytes Stomatocytes Helmet Cells Arredondo-[place] Bodies [place] Cells Acanthocytes (Spur) RBC Fragments ESR 20 H (0-15) mm/hr PT (11.9-14.5) sec INR (0.9-1.1) ABG Methemoglobin (0.4-1.5) % VBG pH (7.32-7.42) U VBG pCO2 (41.0-51.0) mmHg VBG pO2 (25.0-40.0) mmHg VBG HCO3 (24.0-28.0) mmol/L VBG Total CO2 (25.0-29.0) mmol/L VBG O2 Saturation (40.0-70.0) % VBG Base Excess (-2-3) VBG Lactic Acid (0.5-2.0) mmol/L Carboxyhemoglobin (0.0-1.5) % THgb Total Hemoglobin (13.5-16.5) gm/Dl Sodium (133-145) mmol/L Potassium (3.3-5.1) mmol/L Chloride (96-108) mmol/L Carbon Dioxide (22-30) mmol/L Anion Gap (8.0-16.0) BUN (8-23) mg/dL Creatinine (0.7-1.2) mg/dL GFR Calculation Glucose (70-105) mg/dL Calcium (8.6-10.4) mg/dL Phosphorus (2.5-4.5) mg/dL Magnesium (1.6-2.5) mg/dL Total Bilirubin (0.1-1.0) mg/dL Direct Bilirubin (<0.3) mg/dL AST (<40) U/L ALT (<40) U/L Alkaline Phosphatase (39-117) U/L Ammonia (16-60) umol/L Troponin T (<0.03) ng/mL NT-Pro-B Natriuret Pep (<125.0) pg/mL Total Protein (5.9-8.4) gm/dL Albumin (3.2-5.2) gm/dL Globulin (2.2-3.7) gm/dL Lipase (7-60) U/L Procalcitonin (<0.10) ng/mL Urine Color Yellow Urine Appearance Cloudy A (Clear) Urine pH 7.0 (5.0-9.0) Ur Specific [place] 1.010 (1.000-1.035) Urine Protein 30 A (Negative) mg/dL Urine Glucose (UA) Negative (Negative) mg/dL Urine Ketones Negative (Negative) mg/dL Urine Occult Blood >=1.0 A (Negative) mg/dL Urine Nitrate Negative (Negative) Urine Bilirubin Negative (Negative) mg/dL Urine Urobilinogen Negative mg/dL Ur Leukocyte Esterase 500 A (Negative) /ug Urine RBC 74 H (0-3) /hpf Urine WBC > 182 H (0-4) /hpf Ur Squamous Epith Cells 0 (0-4) /hpf Urine Bacteria Few A (0) /hpf Ur Culture Indicated? yes Salicylates mg/dL Urine Opiates Screen None detected Ur Opiates Confirm TNP Ur Oxycodone Screen None detected Urine Methadone Screen None detected Ur Methadone Confirm TNP Acetaminophen ug/mL Ur Barbiturates Screen None detected Ur Barbiturate Confirm TNP Ur Phencyclidine Scrn None detected Urine PCP Confirm TNP Ur Amphetamines Screen None detected U Amphetamines Confirm TNP U Benzodiazepines Scrn None detected U Benzodiazepine Confm TNP Urine Cocaine Screen None detected Urine Cocaine Confirm TNP U Cannabinoids Confirm TNP U Marijuana (THC) Screen None detected Ethyl Alcohol (<0.010) gm/dL 09/26/20 09/26/20 09/26/20 Range/Units 05:11 05:11 05:11 WBC (4.5-11.0) K/mcL RBC (4.50-5.90) M/mcL Hgb (13.5-16.5) g/dL Hct (41.0-55.0) % MCV (80.0-100.0) fL MCH (26.0-34.0) pg MCHC (31.0-36.0) g/dL RDW (11.5-14.5) % Plt Count (140-440) K/mcL MPV (7.4-10.4) fL Seg Neutrophils % (38-78) % Band Neutrophils % (0-10) % Lymphocytes % Monocytes % (Manual) (1-12) % Eosinophils % (Manual) (0-7) % Basophils % (Manual) (0-2) % Metamyelocytes % Myelocytes % Promyelocytes % Nucleated RBCs WBC Morphology Vacuolated Neuts Plasmacytoid Lymphs Reactive Lymphocytes Blast Cells Plasma Cells Other Cell Type Toxic Granulation Dohle Bodies Platelet Estimate (Normal) RBC Morphology (Normal) Polychromasia Hypochromasia Poikilocytosis Basophilic Stippling Anisocytosis (None Seen) Microcytosis Macrocytosis Spherocytes Pappenheimer Bodies Target Cells Tear Drop Cells Ovalocytes Stomatocytes Helmet Cells [place] Bodies [place] Cells Acanthocytes (Spur) RBC Fragments ESR (0-15) mm/hr PT 19.4 H (11.9-14.5) sec INR 1.6 H (0.9-1.1) ABG Methemoglobin (0.4-1.5) % VBG pH (7.32-7.42) U VBG pCO2 (41.0-51.0) mmHg VBG pO2 (25.0-40.0) mmHg VBG HCO3 (24.0-28.0) mmol/L VBG Total CO2 (25.0-29.0) mmol/L VBG O2 Saturation (40.0-70.0) % VBG Base Excess (-2-3) VBG Lactic Acid (0.5-2.0) mmol/L Carboxyhemoglobin (0.0-1.5) % THgb Total Hemoglobin (13.5-16.5) gm/Dl Sodium 129 L (133-145) mmol/L Potassium 3.5 (3.3-5.1) mmol/L Chloride 101 (96-108) mmol/L Carbon Dioxide 17 L (22-30) mmol/L Anion Gap 11.0 (8.0-16.0) BUN 11 (8-23) mg/dL Creatinine 0.9 (0.7-1.2) mg/dL GFR Calculation 89 Glucose 104 (70-105) mg/dL Calcium 7.9 L (8.6-10.4) mg/dL Phosphorus 1.7 L (2.5-4.5) mg/dL Magnesium 1.5 L (1.6-2.5) mg/dL Total Bilirubin 2.5 H (0.1-1.0) mg/dL Direct Bilirubin 0.7 H (<0.3) mg/dL AST 49 H (<40) U/L ALT 24 (<40) U/L Alkaline Phosphatase 166 H (39-117) U/L Ammonia (16-60) umol/L Troponin T < 0.01 (<0.03) ng/mL NT-Pro-B Natriuret Pep 364.6 H (<125.0) pg/mL Total Protein 6.4 (5.9-8.4) gm/dL Albumin 2.7 L (3.2-5.2) gm/dL Globulin 3.7 (2.2-3.7) gm/dL Lipase 44 (7-60) U/L Procalcitonin (<0.10) ng/mL Urine Color Urine Appearance (Clear) Urine pH (5.0-9.0) Ur Specific [place] (1.000-1.035) Urine Protein (Negative) mg/dL Urine Glucose (UA) (Negative) mg/dL Urine Ketones (Negative) mg/dL Urine Occult Blood (Negative) mg/dL Urine Nitrate (Negative) Urine Bilirubin (Negative) mg/dL Urine Urobilinogen mg/dL Ur Leukocyte Esterase (Negative) /ug Urine RBC (0-3) /hpf Urine WBC (0-4) /hpf Ur Squamous Epith Cells (0-4) /hpf Urine Bacteria (0) /hpf Ur Culture Indicated? Salicylates mg/dL Urine Opiates Screen Ur Opiates Confirm Ur Oxycodone Screen Urine Methadone Screen Ur Methadone Confirm Acetaminophen ug/mL Ur Barbiturates Screen Ur Barbiturate Confirm Ur Phencyclidine Scrn Urine PCP Confirm Ur Amphetamines Screen U Amphetamines Confirm U Benzodiazepines Scrn U Benzodiazepine Confm Urine Cocaine Screen Urine Cocaine Confirm U Cannabinoids Confirm U Marijuana (THC) Screen Ethyl Alcohol (<0.010) gm/dL 09/26/20 09/26/20 09/26/20 Range/Units 05:11 05:11 05:11 WBC (4.5-11.0) K/mcL RBC (4.50-5.90) M/mcL Hgb (13.5-16.5) g/dL Hct (41.0-55.0) % MCV (80.0-100.0) fL MCH (26.0-34.0) pg MCHC (31.0-36.0) g/dL RDW (11.5-14.5) % Plt Count (140-440) K/mcL MPV (7.4-10.4) fL Seg Neutrophils % (38-78) % Band Neutrophils % (0-10) % Lymphocytes % Monocytes % (Manual) (1-12) % Eosinophils % (Manual) (0-7) % Basophils % (Manual) (0-2) % Metamyelocytes % Myelocytes % Promyelocytes % Nucleated RBCs WBC Morphology Vacuolated Neuts Plasmacytoid Lymphs Reactive Lymphocytes Blast Cells Plasma Cells Other Cell Type Toxic Granulation Dohle Bodies Platelet Estimate (Normal) RBC Morphology (Normal) Polychromasia Hypochromasia Poikilocytosis Basophilic Stippling Anisocytosis (None Seen) Microcytosis Macrocytosis Spherocytes Pappenheimer Bodies Target Cells Tear Drop Cells Ovalocytes Stomatocytes Helmet Cells [place] Bodies [place] Cells Acanthocytes (Spur) RBC Fragments ESR (0-15) mm/hr PT (11.9-14.5) sec INR (0.9-1.1) ABG Methemoglobin (0.4-1.5) % VBG pH (7.32-7.42) U VBG pCO2 (41.0-51.0) mmHg VBG pO2 (25.0-40.0) mmHg VBG HCO3 (24.0-28.0) mmol/L VBG Total CO2 (25.0-29.0) mmol/L VBG O2 Saturation (40.0-70.0) % VBG Base Excess (-2-3) VBG Lactic Acid 2.9 H (0.5-2.0) mmol/L Carboxyhemoglobin (0.0-1.5) % THgb Total Hemoglobin (13.5-16.5) gm/Dl Sodium (133-145) mmol/L Potassium (3.3-5.1) mmol/L Chloride (96-108) mmol/L Carbon Dioxide (22-30) mmol/L Anion Gap (8.0-16.0) BUN (8-23) mg/dL Creatinine (0.7-1.2) mg/dL GFR Calculation Glucose (70-105) mg/dL Calcium (8.6-10.4) mg/dL Phosphorus (2.5-4.5) mg/dL Magnesium (1.6-2.5) mg/dL Total Bilirubin (0.1-1.0) mg/dL Direct Bilirubin (<0.3) mg/dL AST (<40) U/L ALT (<40) U/L Alkaline Phosphatase (39-117) U/L Ammonia (16-60) umol/L Troponin T (<0.03) ng/mL NT-Pro-B Natriuret Pep (<125.0) pg/mL Total Protein (5.9-8.4) gm/dL Albumin (3.2-5.2) gm/dL Globulin (2.2-3.7) gm/dL Lipase (7-60) U/L Procalcitonin 0.14 H (<0.10) ng/mL Urine Color Urine Appearance (Clear) Urine pH (5.0-9.0) Ur Specific [place] (1.000-1.035) Urine Protein (Negative) mg/dL Urine Glucose (UA) (Negative) mg/dL Urine Ketones (Negative) mg/dL Urine Occult Blood (Negative) mg/dL Urine Nitrate (Negative) Urine Bilirubin (Negative) mg/dL Urine Urobilinogen mg/dL Ur Leukocyte Esterase (Negative) /ug Urine RBC (0-3) /hpf Urine WBC (0-4) /hpf Ur Squamous Epith Cells (0-4) /hpf Urine Bacteria (0) /hpf Ur Culture Indicated? Salicylates < 0.3 mg/dL Urine Opiates Screen Ur Opiates Confirm Ur Oxycodone Screen Urine Methadone Screen Ur Methadone Confirm Acetaminophen < 5.0 ug/mL Ur Barbiturates Screen Ur Barbiturate Confirm Ur Phencyclidine Scrn Urine PCP Confirm Ur Amphetamines Screen U Amphetamines Confirm U Benzodiazepines Scrn U Benzodiazepine Confm Urine Cocaine Screen Urine Cocaine Confirm U Cannabinoids Confirm U Marijuana (THC) Screen Ethyl Alcohol (<0.010) gm/dL 09/26/20 09/26/20 09/26/20 Range/Units 05:11 05:11 05:35 WBC (4.5-11.0) K/mcL RBC (4.50-5.90) M/mcL Hgb (13.5-16.5) g/dL Hct (41.0-55.0) % MCV (80.0-100.0) fL MCH (26.0-34.0) pg MCHC (31.0-36.0) g/dL RDW (11.5-14.5) % Plt Count (140-440) K/mcL MPV (7.4-10.4) fL Seg Neutrophils % TNP (38-78) % Band Neutrophils % TNP (0-10) % Lymphocytes % TNP Monocytes % (Manual) TNP (1-12) % Eosinophils % (Manual) TNP (0-7) % Basophils % (Manual) TNP (0-2) % Metamyelocytes % TNP Myelocytes % TNP Promyelocytes % TNP Nucleated RBCs TNP WBC Morphology TNP Vacuolated Neuts TNP Plasmacytoid Lymphs TNP Reactive Lymphocytes TNP Blast Cells TNP Plasma Cells TNP Other Cell Type TNP Toxic Granulation TNP Dohle Bodies TNP Platelet Estimate TNP (Normal) RBC Morphology TNP (Normal) Polychromasia TNP Hypochromasia TNP Poikilocytosis TNP Basophilic Stippling TNP Anisocytosis TNP (None Seen) Microcytosis TNP Macrocytosis TNP Spherocytes TNP Pappenheimer Bodies TNP Target Cells TNP Tear Drop Cells TNP Ovalocytes TNP Stomatocytes TNP Helmet Cells TNP [place] Bodies TNP [place] Cells TNP Acanthocytes (Spur) TNP RBC Fragments TNP ESR (0-15) mm/hr PT (11.9-14.5) sec INR (0.9-1.1) ABG Methemoglobin (0.4-1.5) % VBG pH (7.32-7.42) U VBG pCO2 (41.0-51.0) mmHg VBG pO2 (25.0-40.0) mmHg VBG HCO3 (24.0-28.0) mmol/L VBG Total CO2 (25.0-29.0) mmol/L VBG O2 Saturation (40.0-70.0) % VBG Base Excess (-2-3) VBG Lactic Acid (0.5-2.0) mmol/L Carboxyhemoglobin (0.0-1.5) % THgb Total Hemoglobin (13.5-16.5) gm/Dl Sodium (133-145) mmol/L Potassium (3.3-5.1) mmol/L Chloride (96-108) mmol/L Carbon Dioxide (22-30) mmol/L Anion Gap (8.0-16.0) BUN (8-23) mg/dL Creatinine (0.7-1.2) mg/dL GFR Calculation Glucose (70-105) mg/dL Calcium (8.6-10.4) mg/dL Phosphorus (2.5-4.5) mg/dL Magnesium (1.6-2.5) mg/dL Total Bilirubin (0.1-1.0) mg/dL Direct Bilirubin (<0.3) mg/dL AST (<40) U/L ALT (<40) U/L Alkaline Phosphatase (39-117) U/L Ammonia 80 H (16-60) umol/L Troponin T (<0.03) ng/mL NT-Pro-B Natriuret Pep (<125.0) pg/mL Total Protein (5.9-8.4) gm/dL Albumin (3.2-5.2) gm/dL Globulin (2.2-3.7) gm/dL Lipase (7-60) U/L Procalcitonin (<0.10) ng/mL Urine Color Urine Appearance (Clear) Urine pH (5.0-9.0) Ur Specific [place] (1.000-1.035) Urine Protein (Negative) mg/dL Urine Glucose (UA) (Negative) mg/dL Urine Ketones (Negative) mg/dL Urine Occult Blood (Negative) mg/dL Urine Nitrate (Negative) Urine Bilirubin (Negative) mg/dL Urine Urobilinogen mg/dL Ur Leukocyte Esterase (Negative) /ug Urine RBC (0-3) /hpf Urine WBC (0-4) /hpf Ur Squamous Epith Cells (0-4) /hpf Urine Bacteria (0) /hpf Ur Culture Indicated? Salicylates mg/dL Urine Opiates Screen Ur Opiates Confirm Ur Oxycodone Screen Urine Methadone Screen Ur Methadone Confirm Acetaminophen ug/mL Ur Barbiturates Screen Ur Barbiturate Confirm Ur Phencyclidine Scrn Urine PCP Confirm Ur Amphetamines Screen U Amphetamines Confirm U Benzodiazepines Scrn U Benzodiazepine Confm Urine Cocaine Screen Urine Cocaine Confirm U Cannabinoids Confirm U Marijuana (THC) Screen Ethyl Alcohol < 0.010 (<0.010) gm/dL 09/26/20 Range/Units 05:35 WBC (4.5-11.0) K/mcL RBC (4.50-5.90) M/mcL Hgb (13.5-16.5) g/dL Hct (41.0-55.0) % MCV (80.0-100.0) fL MCH (26.0-34.0) pg MCHC (31.0-36.0) g/dL RDW (11.5-14.5) % Plt Count (140-440) K/mcL MPV (7.4-10.4) fL Seg Neutrophils % (38-78) % Band Neutrophils % (0-10) % Lymphocytes % Monocytes % (Manual) (1-12) % Eosinophils % (Manual) (0-7) % Basophils % (Manual) (0-2) % Metamyelocytes % Myelocytes % Promyelocytes % Nucleated RBCs WBC Morphology Vacuolated Neuts Plasmacytoid Lymphs Reactive Lymphocytes Blast Cells Plasma Cells Other Cell Type Toxic Granulation Dohle Bodies Platelet Estimate (Normal) RBC Morphology (Normal) Polychromasia Hypochromasia Poikilocytosis Basophilic Stippling Anisocytosis (None Seen) Microcytosis Macrocytosis Spherocytes Pappenheimer Bodies Target Cells Tear Drop Cells Ovalocytes Stomatocytes Helmet Cells [place] Bodies [place] Cells Acanthocytes (Spur) RBC Fragments ESR (0-15) mm/hr PT (11.9-14.5) sec INR (0.9-1.1) ABG Methemoglobin 0 L (0.4-1.5) % VBG pH 7.45 H (7.32-7.42) U VBG pCO2 28.3 L (41.0-51.0) mmHg VBG pO2 68.9 H (25.0-40.0) mmHg VBG HCO3 19.3 L (24.0-28.0) mmol/L VBG Total CO2 20.1 L (25.0-29.0) mmol/L VBG O2 Saturation 89.0 H (40.0-70.0) % VBG Base Excess -4 L (-2-3) VBG Lactic Acid (0.5-2.0) mmol/L Carboxyhemoglobin 5.0 H (0.0-1.5) % THgb Total Hemoglobin 11.0 L (13.5-16.5) gm/Dl Sodium (133-145) mmol/L Potassium (3.3-5.1) mmol/L Chloride (96-108) mmol/L Carbon Dioxide (22-30) mmol/L Anion Gap (8.0-16.0) BUN (8-23) mg/dL Creatinine (0.7-1.2) mg/dL GFR Calculation Glucose (70-105) mg/dL Calcium (8.6-10.4) mg/dL Phosphorus (2.5-4.5) mg/dL Magnesium (1.6-2.5) mg/dL Total Bilirubin (0.1-1.0) mg/dL Direct Bilirubin (<0.3) mg/dL AST (<40) U/L ALT (<40) U/L Alkaline Phosphatase (39-117) U/L Ammonia (16-60) umol/L Troponin T (<0.03) ng/mL NT-Pro-B Natriuret Pep (<125.0) pg/mL Total Protein (5.9-8.4) gm/dL Albumin (3.2-5.2) gm/dL Globulin (2.2-3.7) gm/dL Lipase (7-60) U/L Procalcitonin (<0.10) ng/mL Urine Color Urine Appearance (Clear) Urine pH (5.0-9.0) Ur Specific [place] (1.000-1.035) Urine Protein (Negative) mg/dL Urine Glucose (UA) (Negative) mg/dL Urine Ketones (Negative) mg/dL Urine Occult Blood (Negative) mg/dL Urine Nitrate (Negative) Urine Bilirubin (Negative) mg/dL Urine Urobilinogen mg/dL Ur Leukocyte Esterase (Negative) /ug Urine RBC (0-3) /hpf Urine WBC (0-4) /hpf Ur Squamous Epith Cells (0-4) /hpf Urine Bacteria (0) /hpf Ur Culture Indicated? Salicylates mg/dL Urine Opiates Screen Ur Opiates Confirm Ur Oxycodone Screen Urine Methadone Screen Ur Methadone Confirm Acetaminophen ug/mL Ur Barbiturates Screen Ur Barbiturate Confirm Ur Phencyclidine Scrn Urine PCP Confirm Ur Amphetamines Screen U Amphetamines Confirm U Benzodiazepines Scrn U Benzodiazepine Confm Urine Cocaine Screen Urine Cocaine Confirm U Cannabinoids Confirm U Marijuana (THC) Screen Ethyl Alcohol (<0.010) gm/dL ED POC Tests ED POC Tests: RONNIE - SARS Antigen Negative Discharge Plan Patient/Caregiver Discharge Instructions Pt seen by [facility]/PA only: No Clinical Impression: Thrombocytopenia, Acute UTI, Encephalopathy, hepatic, Hypomagnesemia Fever Qualifiers: Fever type: unspecified Qualified Code(s): R50.9 - Fever, unspecified AMS (altered mental status) Qualifiers: Altered mental status type: unspecified Qualified Code(s): R41.82 - Altered mental status, unspecified Activity: increase activity as tolerated Patient Disposition: Xfer As Inpt ([facility]) Condition: Undetermined Discharge Date/Time: 09/26/20 08:15
== END 2020-09-28 14:20 | disposition home or self-care (01) | DRG 442 ==
LOC: ED 04:33 → ICU 08:15 → MEDSUR 09-27 14:00
PROVIDERS: ADMIT Internal Medicine; ATTEND Internal Medicine